=== PATIENT | female | born 1960 | race Caucasian/White ===

== ENCOUNTER 2016-04-05 07:38 | Outpatient (CLI) | payer OTHER ==
[2014-03-10 12:29] VITALS: BP 127/69
== END 2016-04-05 07:40 ==
LOC: LAB 07:38
PROVIDERS: ATTEND Family Medicine
DX: A09 Infectious gastroenteritis and colitis, unspecified (principal)
CPT/HCPCS: 87493

== ENCOUNTER 2016-04-08 07:44 | Outpatient (CLI) | payer OTHER ==
[2014-03-10 12:29] VITALS: BP 127/69
[2016-04-08 08:36] LABS: eGFR (African) > 60; eGFR (Non-African) > 60
== END 2016-04-08 07:45 ==
LOC: LAB 07:44
PROVIDERS: ATTEND Family Medicine
DX: Z00.00 Encounter for general adult medical examination without abnormal findings (principal)
CPT/HCPCS: 36415; 80053; 80061

== ENCOUNTER 2016-04-14 09:10 | Outpatient (CLI) | payer OTHER ==
[2014-03-10 12:29] VITALS: BP 127/69
[2016-04-14 19:01] LABS: LH (LUTEINIZING HORMONE) 4.1 mIU/mL
== END 2016-04-14 09:11 ==
LOC: LAB 09:10
PROVIDERS: ATTEND Family Medicine
DX: Z13.29 Encounter for screening for other suspected endocrine disorder (principal); Z11.59 Encounter for screening for other viral diseases; L81.8 Other specified disorders of pigmentation; R23.2 Flushing
CPT/HCPCS: 36415; 83001; 83002; 84443; 86803; 88148; G0143

== ENCOUNTER 2016-08-11 08:38 | Outpatient (CLI) | payer OTHER ==
[2014-03-10 12:29] VITALS: BP 127/69
== END 2016-08-11 09:00 ==
LOC: RAD 08:38
PROVIDERS: ATTEND Family Medicine
DX: Z13.820 Encounter for screening for osteoporosis (principal)
CPT/HCPCS: 77080

== ENCOUNTER 2017-03-02 15:55 | Outpatient (CLI) | payer OTHER ==
[2014-03-10 12:29] VITALS: BP 127/69
--- NOTE | 2017-03-02 19:10 | Diagnostic Imaging Report ---
TATUM THOMPSON [facility] [address] [facility] [address] 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 No fracture. No dislocation. Radial head is within normal limits. No joint effusion Impression: No acute osseous abnormality. Electronically signed on Mar 02, 2017 4:25:12 PM GAS STATION ATTENDANT by: Ori SCHMITZ
== END 2017-03-02 15:56 ==
LOC: RAD 15:55
PROVIDERS: ATTEND Physician Assistant
DX: M25.521 Pain in right elbow (principal); W19.XXXA Unspecified fall, initial encounter
CPT/HCPCS: 73070

== ENCOUNTER 2017-03-09 10:15 | Outpatient (CLI) | payer OTHER ==
[2014-03-10 12:29] VITALS: BP 127/69
[2017-03-09 10:40] LABS: MEAN CORPUSCULAR HEMOGLOBIN 31.9 pg (28.0-34.0); MEAN CORPUSCULAR VOLUME 94.3 fl (80.0-100.0)
[2017-03-09 11:00] LABS: eGFR (African) > 60; eGFR (Non-African) > 60
== END 2017-03-09 10:16 ==
LOC: LAB 10:15
PROVIDERS: ATTEND Family Medicine
DX: N93.8 Other specified abnormal uterine and vaginal bleeding (principal); Z13.29 Encounter for screening for other suspected endocrine disorder; Z00.00 Encounter for general adult medical examination without abnormal findings
CPT/HCPCS: 36415; 80053; 80061; 83001; 84443; 85027

== ENCOUNTER → 2017-03-17 | Outpatient (CLI) | payer OTHER ==
[2014-03-10 12:29] VITALS: BP 127/69
== END ==
LOC: LAB 15:22
PROVIDERS: ATTEND Family Medicine
DX: N93.8 Other specified abnormal uterine and vaginal bleeding (principal)
CPT/HCPCS: 36415; 83001

== ENCOUNTER 2017-07-12 12:29 | Emergency (ER) | payer OTHER ==
[2017-07-12] MEDS ORDERED: ONDANSETRON HCL/PF 4 MG/ 2ML VIAL IVP ONE (12:33)
[2017-07-12] MEDS ORDERED: 0.9 % SODIUM CHLORIDE 1,000 ML IV ONE ×2 (12:33→12:35)
[2017-07-12] MEDS: ONDANSETRON HCL/PF 4 MG/ 2ML VIAL ONE ×2 (12:40→12:41)
[2017-07-12 13:03] LABS: eGFR (African) > 60; eGFR (Non-African) > 60
--- NOTE | 2017-07-12 13:35 | ED Physician Documentation ---
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 Pt was not feeling right yesterday and has not been eating well. She thinks she may be dehydrated. Pt became lightheaded and developed n/v while on duty this am. Pt does not recall eating any food that tasted bad. No fever. No urinary sx.) - ROS CONST: other (malaise, lightheadedness) EYES/ENT: none CVS/RESP: none GI/: vomiting, nausea MS/SKIN/LYMPH: none NEURO/PSYCH: dizziness - PAST HX Past History: other (depression) Allergies/Adverse Reactions: Allergies Allergy/AdvReac Type Severity Reaction Status Date / Time No Known Allergies Allergy Verified 02/25/14 15:06 - SOCIAL HX Smoking History: non-smoker - FAMILY HX Family History: No - VITAL SIGNS Vital Signs: Vital Signs Temp Pulse Resp BP Pulse Ox 98.7 F 74 16 117/61 99 07/12/17 12:32 07/12/17 12:32 07/12/17 12:32 07/12/17 12:32 07/12/17 12:32 - REVIEWED ASSESSMENTS Nursing Assessment Reviewed: Yes Vitals Reviewed: Yes Progress - Progress Progress: NS 1 L IVF Zofran 4 mg IV improved elevated blood glucose, ? DM A1C pending, f/u pcp. ED Results Lab/Radiology - Lab Results Lab Results: Lab Results 07/12/17 12:40 Sodium 138 mmol/L mmol/L (136-145) Potassium 3.6 mmol/L mmol/L (3.5-5.1) Chloride 104 mmol/L mmol/L (98-107) Carbon Dioxide 25 mmol/L mmol/L (22-30) BUN 16 mg/dL mg/dL (7-17) Creatinine 0.70 mg/dL mg/dL (0.52-1.04) Estimated Creat Clear 89 Est GFR ( Amer) > 60 (60 - ) Est GFR (Non-Af Amer) > 60 (60 - ) Glucose 178 mg/dL H mg/dL (74-106) Calcium 9.4 mg/dL mg/dL (8.4-10.2) Total Bilirubin 0.5 mg/dL mg/dL (0.2-1.3) AST 32 U/L U/L (15-46) ALT 40 U/L U/L (13-69) Alkaline Phosphatase 72 U/L U/L (38-126) Total Protein 7.6 g/dL g/dL (6.3-8.2) Albumin 4.4 g/dL g/dL (3.5-5.0) Lipase 137 U/L U/L (23-300) - Orders Orders: ED Orders Category Date Time Status Place IV Lock 1T Care 07/12/17 12:33 Active CBC REF Routine Lab 07/12/17 12:40 Received CMP Routine Lab 07/12/17 12:40 Completed LIPASE Stat Lab 07/12/17 12:40 Completed URINALYSIS Routine Lab 07/12/17 Ordered 0.9 % Sodium Chloride [Normal Saline] 1,000 ml Med 07/12/17 12:35 Discontinued IV .STK-MED 0.9 % Sodium Chloride [Normal Saline] 1,000 ml Med 07/12/17 12:33 Discontinued IV Q1H Ondansetron HCl/Pf [Zofran 4 mg/2 ml] Med 07/12/17 12:35 Discontinued 4 mg .ROUTE .STK-MED ONE Ondansetron HCl/Pf [Zofran 4 mg/2 ml] Med 07/12/17 12:33 Discontinued 4 mg IVP NOW ONE General Adult Physical Exam - PHYSICAL EXAM GENERAL APPEARANCE: moderate distress EENT: pharynx normal NECK: normal inspection, supple RESPIRATORY: no resp distress, chest non-tender, breath sounds normal CVS: reg rate & rhythm, heart sounds normal ABDOMEN: soft, no organomegaly, normal bowel sounds BACK: normal inspection, no CVA tenderness SKIN: warm/dry, normal color EXTREMITIES: non-tender, normal range of motion, no evidence of injury NEURO: oriented X3, motor nml, sensation nml Discharge Clincal Impression: Elevated blood sugar level, nausea/vomiting Referrals: Yani Haque MD [Primary Care Provider] - Condition: Good Disposition: 01 HOME, SELF-CARE Decision to Admit: NO Decision Time: 14:30
[2017-07-12 14:05] LABS: BASOPHILS % 0.4 (0.0-1.5); EOSINOPHILS % 0.5 % (0.0-6.8); MEAN CORPUSCULAR HEMOGLOBIN 30.9 pg (28.0-34.0); MEAN CORPUSCULAR VOLUME 96.3 fl (80.0-100.0); MONOCYTES % 4.4 % (0.0-11.0); NEUTROPHILS # 8.3 # k/uL (1.4-7.7)
[2017-07-12 14:36] VITALS: BP 134/59
[2017-07-12 14:41] LABS: BASO % 0.5 % (0.0-1.5); EOS % 0.4 % (0.0-6.8); LYMPH ABS # 3.73 thou/uL (0.60-4.00); MCH. 31.4 pg (28.0-34.0); MCV 93.7 fL (80.0-100.0); MONOCYTE % 5.3 % (0.0-11.0); MONOCYTE ABS # 0.54 thou/uL (0.00-0.90); PLATELET COUNT 254 thou/uL (130-400)
[2017-07-13 16:01] LABS: APPEARANCE,URINE CLEAR (CLEAR); COLOR,URINE YELLOW (YELLOW)
[2017-07-13 16:02] LABS: OCCULT BLOOD,URINE NEGATIVE (NEGATIVE); PH URINE 5.5 (5.0 - 8.0); UROBILINOGEN URINE 0.2 Eu (0.2-1.0)
== END 2017-07-12 14:32 | disposition home or self-care (01) ==
LOC: ED 12:29
DX: R73.09 Other abnormal glucose (principal); R11.2 Nausea with vomiting, unspecified
CPT/HCPCS: 80053; 81002; 83036; 83690; 85025; J2405; J7030; 96360; 96374; 99284; S1016

== ENCOUNTER 2017-07-13 15:24 | Outpatient (CLI) | payer OTHER ==
[2017-07-12 14:36] VITALS: BP 134/59
== END 2017-07-13 15:30 ==
LOC: LAB 15:24 → RT 15:30
PROVIDERS: ATTEND Family Medicine
DX: R42 Dizziness and giddiness (principal); R00.2 Palpitations

== ENCOUNTER 2017-10-17 13:34 | Outpatient (CLI) | payer OTHER ==
--- NOTE | 2017-10-17 16:31 | Diagnostic Imaging Report ---
JEFF LOMAX [facility] [address] [facility] [address] Report Submission Date: Oct 17, 2017 2:18:53 PM CDT Patient Study Name: JJ MOTA Date: Oct 17, 2017 1:36:51 PM CDT Modality Type: DX Gender: F Description: LOWER EXTREMITY : 58 Institution: [facility] Physician: JEFF LOMAX Left foot History: Heel pain Three views of the left foot were obtained which demonstrate a very tiny plantar calcaneal spur. Otherwise, no osseous abnormalities are noted. Mineralization is normal. Impression: Very tiny plantar calcaneal spur. Otherwise, no osseous abnormality. Electronically signed on Oct 17, 2017 2:18:53 PM CDT by: Nury SCHMITZ
== END 2017-10-17 13:35 ==
LOC: RAD 13:34
PROVIDERS: ATTEND Family Medicine
DX: M79.672 Pain in left foot (principal)
CPT/HCPCS: 73630

== ENCOUNTER 2018-01-10 08:55 | Emergency (ER) | payer OTHER ==
--- NOTE | 2018-01-10 09:09 | ED Physician Documentation ---
Fall - HISTORIAN Historian: patient - HPI Stated Complaint: fall Chief Complaint: Fall Onset: today (744) Where: work Context: slipped r: mild Associated Symptoms:: no loss of consciousness Location of Pain/Injury: L shoulder Injury to Left Extremity: shoulder - ROS CONST: no problems NEURO: denies: dizziness MS/SKIN/LYMPH: denies: weakness, numbness EYES/ENT: none CVS/RESP: denies: chest pain, shortness of breath GI/: denies: nausea, vomiting - PAST HX Past History: none Allergies/Adverse Reactions: Allergies Allergy/AdvReac Type Severity Reaction Status Date / Time No Known Drug Allergies Allergy Verified 01/10/18 09:13 Home Medications: Ambulatory Orders Medication Instructions Recorded Cyclobenzaprine HCl [Flexeril] 10 mg PO TID PRN #90 tablet 01/10/18 - SOCIAL HX Smoking History: non-smoker Alcohol Use: none Drug Use: none - FAMILY HX Family History: none - VITAL SIGNS Vital Signs: Vital Signs Temp Pulse Resp BP Pulse Ox 134/59 07/12/17 14:32 - REVIEWED ASSESSMENTS Nursing Assessment Reviewed: Yes Vitals Reviewed: Yes ED Results Lab/Radiology - Radiology Radiology Impressions: Examination: Plain film leftshoulder History: PAIN IN LEFT SHOULDER AFTER FALL TODAY (Hx) Comparison exams: None provided Findings: 3 views of the left shoulder demonstrate normal cortical margins. No evidence for fracture or dislocation. No soft tissue abnormality Impression: No acute osseous process. Electronically signed on Jan 10, 2018 9:43:55 AM WAVE SOLDERING MACHINE OPERATOR by: Ori Ceballos Physical Exam - Physical Exam General Appearance: no acute distress, alert Head: non-tender Neck: non-tender, painless ROM Eye: AMOR ENT: nml external inspection Resp/CVS: chest non-tender, breath sounds nml, no resp. distress Abdomen: soft, non-tender Neuro: oriented x3, motor nml Skin: color nml Back: normal inspection Extremities: atraumatic, pelvis stable, hips non-tender. No: bony point- tenderness Joint: joints nml, nml ROM (Pain in shoulder with abduction of left arm ), Nml gait/weight bearing. No: click/crepitus - Emily Coma Score Eyes Open: Spontaneous Speech: Oriented Motor: Obeys Commands Discharge Clincal Impression: Left shoulder strain Qualifiers: Encounter type: initial encounter Qualified Code(s): S46.912A - Strain of unspecified muscle, fascia and tendon at shoulder and upper arm level, left arm, initial encounter Prescriptions: Cyclobenzaprine HCl [Flexeril] 10 mg PO TID PRN #90 tablet PRN Reason: Spasms Referrals: Yani Haque MD [Primary Care Provider] - 2 Days Additional Instructions: 1. Apply ice to affected area 2. Tylenol and/or Ibuprofen as needed for pain 3. Follow up with Work Comp if symptoms do not improve. Condition: Stable Disposition: 01 HOME, SELF-CARE Decision to Admit: NO Date of Decison to Admit: 01/10/18 Decision Time: 09:45
[2018-01-10 10:07] VITALS: BP 128/66
--- NOTE | 2018-01-10 19:59 | Diagnostic Imaging Report ---
GARY SCANLON [facility] [address] [facility] [address] 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 No evidence for fracture or dislocation. No soft tissue abnormality Impression: No acute osseous process. Electronically signed on Jan 10, 2018 9:43:55 AM KILN LABOURER by: Ori SCHMITZ
== END 2018-01-10 10:03 | disposition home or self-care (01) ==
LOC: ED 08:55
DX: S46.912A Strain of unspecified muscle, fascia and tendon at shoulder and upper arm level, left arm, initial encounter (principal); W10.9XXA Fall (on) (from) unspecified stairs and steps, initial encounter; Y93.01 Activity, walking, marching and hiking; Y92.89 Other specified places as the place of occurrence of the external cause; Y99.0 Civilian activity done for income or pay
CPT/HCPCS: 73030; 99283; 99284

== ENCOUNTER 2018-03-20 09:44 | Outpatient (CLI) | payer OTHER ==
[2018-03-20 10:02] LABS: BASOPHILS % 0.5 (0.0-1.5); EOSINOPHILS % 1.5 % (0.0-6.8); MONOCYTES % 4.2 % (0.0-11.0); NEUTROPHILS # 4.4 # k/uL (1.4-7.7)
[2018-03-20 10:18] LABS: eGFR (Non-African) > 60
== END 2018-03-20 09:55 ==
LOC: LAB 09:44
PROVIDERS: ATTEND Family Medicine
DX: Z00.00 Encounter for general adult medical examination without abnormal findings (principal); M79.10 Myalgia, unspecified site
CPT/HCPCS: 36415; 80053; 80061; 82306; 85025